=== PATIENT | female | born 1975 | race Caucasian/White ===

== ENCOUNTER 2021-01-03 20:25 | Emergency (ER) | payer OTHER ==
[~2021-01-03] VITALS: Ht 167.6 cm; Wt 73.5 kg
[2021-01-03] MEDS ORDERED: HYDROCODON-ACE1 EAC7 PO ×2 (21:30→21:32)
[2021-01-03] MEDS ORDERED: IBUPROFEN 800800 M1 PO (21:34)
[2021-01-03 21:44] VITALS: BP 111/75
== END 2021-01-03 21:44 | disposition home or self-care (01) ==
LOC: M.ERS 20:25
DX: M25.422 Effusion, left elbow (principal); Z98.51 Tubal ligation status